=== PATIENT | female | born 1945 | race Caucasian/White ===

== ENCOUNTER → 2017-01-06 | Outpatient (CLI) | payer OTHER ==
[~2017-01-06] VITALS: Ht 172.7 cm; Wt 93.0 kg
[~2017-01-06] MED LIST: AMOXICILLIN500 M1 PO; AMOXICILLIN875 MG PO; ASCORBIC ACID500 M3 PO; ASPIR-LOW81 MG PO; ASPIRIN81 M1 PO; ASPIRIN81 M2 PO; CELECOXIB200 MG PO; CLARITIN10 M3 PO; COUMADIN2 MG PO; DICLOFENAC POTA50 MG PO; DOCUSATE SODIU100 MG PO; DOK PLUS TABLE1 EACH PO; FAMOTIDINE20 MG PO; FLEXERIL10 MG PO; FOLIC ACID1 MG PO; HYDROCHLOROTHIA25 MG PO; IRON325 M1 PO; LASIX20 MG PO; LEXAPRO10 MG PO; LIPITOR80 MG PO; LISINOPRIL20 MG PO; LYRICA100 MG PO; MEDROL DOSEPAK4 MG PO; MELOXICAM15 MG PO; MELOXICAM7.5 MG PO; MULTIVITAMIN1 EAC2 PO; OXYCODONE HCL5 MG PO; POLYETHYLENE GL17 GM PO; PRAVACHOL80 MG PO; PRAVASTATIN SOD80 MG PO; PREDNISONE10 MG PO; PREDNISONE50 MG PO; PRILOSEC40 MG PO; PROAIR HFA8.5 GM IH; PROVENTIL,2.5 MG/3 M IH; REQUIP0.5 MG PO; SPIRIVA RESPIMAT4 GM IH; SYMBICORT60 INHALAT IH; THERAGRAN1 TABLET PO; VENTOLIN HFA18 GM IH; VITAMIN D31000 UNI2 PO; ZITHROMAX Z-PA250 MG PO; ZITHROMAX250 MG PO
== END | disposition home or self-care (01) ==
LOC: AMB 11:56
PROC: 0DJ08ZZ Inspection of Upper Intestinal Tract, Via Natural or Artificial Opening Endoscopic (ICD-10-PCS; principal; 2017-01-06)
DX: K22.4 Dyskinesia of esophagus (principal); R13.10 Dysphagia, unspecified; K21.9 Gastro-esophageal reflux disease without esophagitis; I10 Essential (primary) hypertension; J44.9 Chronic obstructive pulmonary disease, unspecified; Z79.82 Long term (current) use of aspirin; Z87.891 Personal history of nicotine dependence
CPT/HCPCS: 93005; J3010

== ENCOUNTER → 2017-01-19 | Outpatient (CLI) | payer OTHER | END | disposition home or self-care (01) | LOC: NUC 08:06 | DX: K31.84 Gastroparesis (principal) | CPT/HCPCS: 78264; A9541 ==

== ENCOUNTER → 2017-03-30 | Outpatient (CLI) | payer OTHER | END | disposition home or self-care (01) | DX: R13.13 Dysphagia, pharyngeal phase (principal); R13.11 Dysphagia, oral phase; R11.10 Vomiting, unspecified | CPT/HCPCS: 92611 GN; G8996 GN; G8997 GN; G8998 GN ==

== ENCOUNTER 2017-08-12 09:45 | Inpatient (IN) | payer OTHER ==
[~2017-08-12] VITALS: Ht 172.7 cm; Wt 99.8 kg
[~2017-08-12 09:45] MED LIST changes: -LYRICA100 MG PO; +LYRICA150 MG PO; +OMEPRAZOLE40 M1 PO; -PRILOSEC40 MG PO
[2017-08-12 10:32] LABS: HEMOGLOBIN 13.3 G/DL (11.9-15.5); MCH 29.4 PG (29.0-34.0); MCHC 31.7 G/DL (30.0-36.0); MCV 92.7 FL (83-99); PLATELET COUNT 250 K/uL (156-360); RBC DIS.WIDTH-CV 15.5 % (11.8-14.6); RBC DIS.WIDTH-SD 53.1 % (39-53); RED BLOOD COUNT 4.53 M/uL (3.80-5.20); WHITE BLOOD COUNT 7.3 K/uL (4.1-10.2)
[2017-08-12 10:44] LABS: CHLORIDE 108 mEq/L (99-109); POTASSIUM 4.1 mEq/L (3.7-5.4); SODIUM 142 mEq/L (136-147)
[2017-08-12 10:46] LABS: GLUCOSE 99 mg/dL (70-99)
[2017-08-12 10:50] LABS: CREATININE 0.9 mg/dL (0.6-1.3); GFR ESTIMATE (CALCULATED) > 59 mL/min/
[2017-08-12 10:51] LABS: UREA NITROGEN (BUN) 11 mg/dL (9-23)
[2017-08-12 11:31] LABS: TROP-I INTERPRETATION NEGATIVE; TROPONIN-I < 0.01 ng/mL (0.0-0.30)
[2017-08-12] MEDS ORDERED: METFORMIN HCL500 MG PO (14:10)
[2017-08-12] MEDS ORDERED: FENOFIBRATE160 M1 PO (14:12)
[2017-08-12] MEDS ORDERED: SPIRIVA RESPIMAT4 GM IH (14:13)
[2017-08-12] MEDS ORDERED: BENZONATATE100 MG PO (14:15)
[2017-08-12] MEDS ORDERED: ZYRTEC10 M3 PO (14:16)
[2017-08-12 19:00] VITALS: BP 135/78
[2017-08-13 03:44] VITALS: BP 139/78
[2017-08-13 07:00] VITALS: BP 171/71
[2017-08-13 07:15] LABS: HEMATOCRIT 40.2 % (36.0-46.0); HEMOGLOBIN 12.5 G/DL (11.9-15.5); MCH 28.6 PG (29.0-34.0); MCHC 31.1 G/DL (30.0-36.0); PLATELET COUNT 261 K/uL (156-360); RBC DIS.WIDTH-SD 51.4 % (39-53); RED BLOOD COUNT 4.37 M/uL (3.80-5.20)
[2017-08-13 07:39] LABS: CHLORIDE 107 MEQ/L (99-109); CREATININE 0.8 MG/DL (0.6-1.3); GFR ESTIMATE (CALCULATED) > 59 mL/min/; GLUCOSE 123 mg/dL (70-99); POTASSIUM 4.2 MEQ/L (3.7-5.4); SODIUM 144 MEQ/L (136-147); UREA NITROGEN (BUN) 15 mg/dL (9-23)
[2017-08-13 12:27] VITALS: BP 164/72
[2017-08-13 16:02] VITALS: BP 137/41
[2017-08-13 20:53] VITALS: BP 176/76
[2017-08-14 00:06] VITALS: BP 175/86
[2017-08-14 04:47] VITALS: BP 158/78
[2017-08-14 07:32] LABS: HEMATOCRIT 41.4 % (36.0-46.0); HEMOGLOBIN 13.1 G/DL (11.9-15.5); MCHC 31.6 G/DL (30.0-36.0); MCV 91.8 FL (83-99); PLATELET COUNT 294 K/uL (156-360); RED BLOOD COUNT 4.51 M/uL (3.80-5.20)
[2017-08-14 08:05] LABS: BASOPHIL (%) 0 % (0-1); EOSINOPHIL (%) 0 % (0-5); IMMATURE GRANULOCYTE (%) 0.3 % (0.0-0.7); LYMPHOCYTE (%) 28.2 % (15-42); LYMPHOCYTE COUNT 1.7 K/uL (1.0-2.8); MONOCYTE COUNT 0.4 K/uL (0-0.8); NEUTROPHIL (%) 65.5 % (45-76); NEUTROPHIL COUNT 3.9 K/uL (1.8-6.4)
[2017-08-14 08:13] VITALS: BP 154/84
[2017-08-14 08:17] LABS: ALBUMIN 3.9 G/DL (3.2-4.8); ALKALINE PHOSPHATASE 52 IU/L (3-129); ALT (GPT) 19 IU/L (3-49); AST (GOT) 18 IU/L (2-34); CHLORIDE 105 MEQ/L (99-109); CREATININE 0.8 MG/DL (0.6-1.3); GFR ESTIMATE (CALCULATED) > 59 mL/min/; GLUCOSE 146 mg/dL (70-99); POTASSIUM 4.5 MEQ/L (3.7-5.4); SODIUM 143 MEQ/L (136-147); TOTAL BILIRUBIN 0.3 MG/DL (0.0-1.0); TOTAL PROTEIN 6.8 G/DL (6.4-8.3); UREA NITROGEN (BUN) 17 mg/dL (9-23)
[2017-08-14 11:55] VITALS: BP 142/79
[2017-08-14 16:04] VITALS: BP 143/78
[2017-08-14 20:14] VITALS: BP 173/84
[2017-08-15 00:06] VITALS: BP 166/82; BP 174/79
[2017-08-15 03:28] VITALS: BP 171/80
[2017-08-15 07:10] LABS: BASOPHIL (%) 0.1 % (0-1); EOSINOPHIL (%) 0 % (0-5); HEMATOCRIT 41.6 % (36.0-46.0); HEMOGLOBIN 13.3 G/DL (11.9-15.5); IMMATURE GRANULOCYTE (%) 0.8 % (0.0-0.7); LYMPHOCYTE (%) 26.2 % (15-42); MCH 29.2 PG (29.0-34.0); MCV 91.4 FL (83-99); MONOCYTE (%) 6.6 % (3-12); MONOCYTE COUNT 0.5 K/uL (0-0.8); NEUTROPHIL (%) 66.3 % (45-76); NEUTROPHIL COUNT 5.2 K/uL (1.8-6.4); PLATELET COUNT 323 K/uL (156-360); RBC DIS.WIDTH-CV 14.8 % (11.8-14.6); RBC DIS.WIDTH-SD 49.6 % (39-53); RED BLOOD COUNT 4.55 M/uL (3.80-5.20); WHITE BLOOD COUNT 7.8 K/uL (4.1-10.2)
[2017-08-15 07:31] LABS: ALBUMIN 3.9 G/DL (3.2-4.8); ALKALINE PHOSPHATASE 52 IU/L (3-129); ALT (GPT) 16 IU/L (3-49); AST (GOT) 14 IU/L (2-34); CHLORIDE 103 MEQ/L (99-109); CREATININE 0.8 MG/DL (0.6-1.3); GFR ESTIMATE (CALCULATED) > 59 mL/min/; GLUCOSE 129 mg/dL (70-99); POTASSIUM 4.2 MEQ/L (3.7-5.4); SODIUM 143 MEQ/L (136-147); TOTAL PROTEIN 6.8 G/DL (6.4-8.3); UREA NITROGEN (BUN) 23 mg/dL (9-23)
[2017-08-15 07:32] LABS: TOTAL BILIRUBIN 0.4 MG/DL (0.0-1.0)
[2017-08-15 08:02] VITALS: BP 143/86
[2017-08-15 15:30] VITALS: BP 140/76
[2017-08-15 23:10] VITALS: BP 144/69
[2017-08-16 07:45] VITALS: BP 131/63
[2017-08-16 11:31] VITALS: BP 146/70
[2017-08-16] MEDS ORDERED: LEVAQUIN750 MG PO (12:53)
[2017-08-16] MEDS ORDERED: PREDNISONE10 MG PO (12:54)
== END 2017-08-16 14:45 | disposition home or self-care (01) | DRG 190 ==
LOC: EME 09:45 → EDOF 13:45 → 2EAST 13:45 → ENRESERV 14:00 → EDOF 14:05 → ENRESERV 15:34 → 2EAST 19:01
PROVIDERS: Emergency Medicine; Hospitalist; Internal Medicine
DX: J44.1 Chronic obstructive pulmonary disease with (acute) exacerbation (principal); J15.9 Unspecified bacterial pneumonia; J96.01 Acute respiratory failure with hypoxia; I10 Essential (primary) hypertension; E78.5 Hyperlipidemia, unspecified; E11.9 Type 2 diabetes mellitus without complications; G25.81 Restless legs syndrome; G47.33 Obstructive sleep apnea (adult) (pediatric); J44.0 Chronic obstructive pulmonary disease with (acute) lower respiratory infection; Z79.4 Long term (current) use of insulin; Z87.891 Personal history of nicotine dependence
CPT/HCPCS: 71045; 71046; 71250; 80048; 80053; 82948; 83605; 84484; 85025; 85027; 87040; 87070; 87205; 87502; 93005; 94010; 94640; 94640 76; 94660; 94799; 99202; 99281; 99285; J1650; J1815; J1956; J2920; J2930; J7030; J7512

== ENCOUNTER 2017-11-20 09:18 | Emergency (ER) | payer OTHER ==
[~2017-11-20] VITALS: Ht 172.7 cm; Wt 96.8 kg
[~2017-11-20 09:18] MED LIST changes: +BENZONATATE100 MG PO; +FENOFIBRATE160 M1 PO; +LEVAQUIN750 MG PO; +METFORMIN HCL500 MG PO; +ZYRTEC10 M3 PO
[2017-11-20 09:57] LABS: HEMATOCRIT 39.8 % (36.0-46.0); HEMOGLOBIN 13.1 G/DL (11.9-15.5); MCH 29.6 PG (29.0-34.0); MCHC 32.9 G/DL (30.0-36.0); MCV 89.8 FL (83-99); RBC DIS.WIDTH-CV 15.1 % (11.8-14.6); RBC DIS.WIDTH-SD 50.3 % (39-53); RED BLOOD COUNT 4.43 M/uL (3.80-5.20); WHITE BLOOD COUNT 7.8 K/uL (4.1-10.2)
[2017-11-20 10:11] LABS: ALBUMIN 4.4 g/dL (3.2-4.8); CHLORIDE 111 mEq/L (99-109); SODIUM 144 mEq/L (136-147)
[2017-11-20 10:14] LABS: GLUCOSE 104 mg/dL (70-99); TOTAL PROTEIN 7.6 g/dL (6.4-8.3)
[2017-11-20 10:16] LABS: TOTAL BILIRUBIN 0.4 mg/dL (0.0-1.0)
[2017-11-20 10:17] LABS: ALKALINE PHOSPHATASE 48 IU/L (3-129); GFR ESTIMATE (CALCULATED) 58 mL/min/
[2017-11-20 10:18] LABS: UREA NITROGEN (BUN) 13 mg/dL (9-23)
[2017-11-20 10:19] LABS: AST (GOT) 27 IU/L (2-34)
[2017-11-20 10:20] LABS: ALT (GPT) 32 IU/L (3-49)
[2017-11-20 10:36] LABS: PLAT.SUFFICIENCY ADEQUATE; PLATELET COUNT 303 K/uL (156-360)
[2017-11-20 10:40] LABS: APPEARANCE CLEAR ((CLEAR)); BILIRUBIN NEGATIVE; BLOOD NEGATIVE; COLOR STRAW ((YELLOW)); GLUCOSE (STRIP) NEGATIVE; KETONES NEGATIVE; LEUKOCYTES NEGATIVE; NITRITE NEGATIVE; PROTEIN (STRIP) NEGATIVE; SPECIFIC GRAVITY 1.004 (1.000-1.030); UCUL ADDED? NO; UROBILINOGEN 0.2 MG/DL (0.2-1.0)
[2017-11-20] MEDS ORDERED: FLEXERIL10 MG PO (11:41)
[2017-11-20] MEDS ORDERED: PREDNISONE20 MG PO (11:41)
[2017-11-20 12:00] VITALS: BP 122/71
== END 2017-11-20 12:03 | disposition home or self-care (01) ==
LOC: EME 09:18
PROVIDERS: Nurse Practitioner Family
DX: M54.5 Low back pain (principal); G89.29 Other chronic pain; K57.30 Diverticulosis of large intestine without perforation or abscess without bleeding; N28.1 Cyst of kidney, acquired; E11.9 Type 2 diabetes mellitus without complications; Z79.84 Long term (current) use of oral hypoglycemic drugs; E78.5 Hyperlipidemia, unspecified; J44.9 Chronic obstructive pulmonary disease, unspecified; Z96.651 Presence of right artificial knee joint; Z79.82 Long term (current) use of aspirin; Z87.891 Personal history of nicotine dependence
CPT/HCPCS: 72070; 74176; 80053; 81003; 85027; 99281; 99285; J1885; J7512

== ENCOUNTER 2018-03-21 19:33 | Emergency (ER) | payer OTHER ==
[~2018-03-21] VITALS: Ht 172.7 cm; Wt 95.8 kg
[~2018-03-21 19:33] MED LIST changes: +PREDNISONE20 MG PO
[2018-03-21 21:33] LABS: HEMATOCRIT 40.1 % (36.0-46.0); HEMOGLOBIN 13.1 G/DL (11.9-15.5); MCH 29.2 PG (29.0-34.0); MCHC 32.7 G/DL (30.0-36.0); MCV 89.3 FL (83-99); RBC DIS.WIDTH-CV 15.2 % (11.8-14.6); RBC DIS.WIDTH-SD 49.8 % (39-53); RED BLOOD COUNT 4.49 M/uL (3.80-5.20); WHITE BLOOD COUNT 12.6 K/uL (4.1-10.2)
[2018-03-21 21:35] LABS: ALBUMIN 4.3 g/dL (3.2-4.8); CHLORIDE 109 mEq/L (99-109); SODIUM 143 mEq/L (136-147)
[2018-03-21 21:38] LABS: GLUCOSE 96 mg/dL (70-99); TOTAL PROTEIN 7.3 g/dL (6.4-8.3)
[2018-03-21 21:40] LABS: TOTAL BILIRUBIN 0.6 mg/dL (0.0-1.0)
[2018-03-21 21:41] LABS: ALKALINE PHOSPHATASE 63 IU/L (3-129); CREATININE 0.8 mg/dL (0.6-1.3); GFR ESTIMATE (CALCULATED) > 59 mL/min/
[2018-03-21 21:42] LABS: UREA NITROGEN (BUN) 12 mg/dL (9-23)
[2018-03-21 21:43] LABS: AST (GOT) 17 IU/L (2-34)
[2018-03-21 21:44] LABS: ALT (GPT) 19 IU/L (3-49)
[2018-03-21 21:45] LABS: LIPASE 37 U/L (1.0-51.0)
[2018-03-21 22:17] LABS: PLAT.SUFFICIENCY ADEQUATE; PLATELET COUNT 287 K/uL (156-360)
[2018-03-21 22:18] LABS: APPEARANCE CLEAR ((CLEAR)); BILIRUBIN NEGATIVE; BLOOD NEGATIVE; COLOR YELLOW ((YELLOW)); GLUCOSE (STRIP) NEGATIVE; KETONES NEGATIVE; LEUKOCYTES NEGATIVE; NITRITE NEGATIVE; PROTEIN (STRIP) NEGATIVE; SPECIFIC GRAVITY 1.009 (1.000-1.030); UCUL ADDED? NO; UROBILINOGEN 0.2 MG/DL (0.2-1.0)
[2018-03-21] MEDS ORDERED: NORCO 5/3251 TABLET PO (23:28)
[2018-03-21] MEDS ORDERED: FLAGYL500 MG PO (23:28)
[2018-03-21] MEDS ORDERED: CIPRO500 MG PO (23:28)
[2018-03-21] MEDS ORDERED: GABAPENTIN300 MG PO (23:29)
[2018-03-21 23:58] VITALS: BP 144/61
== END 2018-03-21 23:59 | disposition home or self-care (01) ==
LOC: EME 19:33
PROVIDERS: Physician Assistant
DX: M54.41 Lumbago with sciatica, right side (principal); G89.29 Other chronic pain; K57.32 Diverticulitis of large intestine without perforation or abscess without bleeding; E11.9 Type 2 diabetes mellitus without complications; Z79.84 Long term (current) use of oral hypoglycemic drugs; J43.9 Emphysema, unspecified; E78.5 Hyperlipidemia, unspecified; Z96.651 Presence of right artificial knee joint; Z79.82 Long term (current) use of aspirin; Z88.6 Allergy status to analgesic agent; F17.200 Nicotine dependence, unspecified, uncomplicated
CPT/HCPCS: 74177; 80053; 81003; 83690; 85027; 99281; 99284; J2405; J3010; J7030

== ENCOUNTER 2018-03-25 12:40 | Emergency (ER) | payer OTHER ==
[~2018-03-25] VITALS: Ht 172.7 cm; Wt 93.7 kg
[~2018-03-25 12:40] MED LIST changes: +CIPRO500 MG PO; +FLAGYL500 MG PO; +GABAPENTIN300 MG PO; +NORCO 5/3251 TABLET PO
[2018-03-25 13:48] LABS: HEMATOCRIT 40.1 % (36.0-46.0); HEMOGLOBIN 12.9 G/DL (11.9-15.5); MCH 28.9 PG (29.0-34.0); MCHC 32.2 G/DL (30.0-36.0); MCV 89.9 FL (83-99); PLATELET COUNT 297 K/uL (156-360); RBC DIS.WIDTH-CV 14.9 % (11.8-14.6); RBC DIS.WIDTH-SD 49.4 % (39-53); RED BLOOD COUNT 4.46 M/uL (3.80-5.20); WHITE BLOOD COUNT 8.3 K/uL (4.1-10.2)
[2018-03-25 13:55] LABS: CHLORIDE 110 mEq/L (99-109); POTASSIUM 4.7 mEq/L (3.7-5.4); SODIUM 144 mEq/L (136-147)
[2018-03-25 13:57] LABS: GLUCOSE 128 mg/dL (70-99)
[2018-03-25 14:01] LABS: CREATININE 0.9 mg/dL (0.6-1.3); GFR ESTIMATE (CALCULATED) > 59 mL/min/
[2018-03-25 14:02] LABS: UREA NITROGEN (BUN) 11 mg/dL (9-23)
[2018-03-25 16:38] VITALS: BP 165/79
== END 2018-03-25 16:38 | disposition home or self-care (01) ==
LOC: EME 12:40
PROVIDERS: Emergency Medicine
DX: K57.32 Diverticulitis of large intestine without perforation or abscess without bleeding (principal); M54.5 Low back pain; G89.29 Other chronic pain; E11.9 Type 2 diabetes mellitus without complications; J44.9 Chronic obstructive pulmonary disease, unspecified; E78.5 Hyperlipidemia, unspecified; F17.200 Nicotine dependence, unspecified, uncomplicated; Z79.84 Long term (current) use of oral hypoglycemic drugs; Z88.6 Allergy status to analgesic agent
CPT/HCPCS: 72132; 74177; 80048; 81003; 85027; 87086; 99281; 99285; J2270